=== PATIENT | male | born 1975 | race Caucasian/White ===

== ENCOUNTER 2021-06-20 12:43 | Emergency (ER) | payer BC ==
[~2021-06-20] VITALS: Ht 180.3 cm; Wt 115.7 kg
[~2021-06-20 12:43] MED LIST: ASPIRIN CHEWABL81 MG PO; COREG6.25 MG PO; FISH OIL 1,2001 EAC2 PO; LANSOPRAZOLE30 MG PO; LIPITOR TAB 2020 MG PO; VITAMIN B-121000 MCG PO; VITAMIN D1000 UNI1 PO; ZYLOPRIM 100 M100 MG PO
== END 2021-06-20 15:16 | disposition home or self-care (01) ==
LOC: ER1 12:43
DX: U07.1 COVID-19 (principal); Z23 Encounter for immunization; K21.9 Gastro-esophageal reflux disease without esophagitis; I10 Essential (primary) hypertension; E78.5 Hyperlipidemia, unspecified
CPT/HCPCS: 99282; M0243